=== PATIENT | male | born 1955 | race Caucasian/White ===

== ENCOUNTER 2018-07-07 22:48 | Emergency (ER) | payer BC ==
[~2018-07-07] VITALS: Ht 172.7 cm; Wt 117.9 kg
[~2018-07-07 22:48] MED LIST: ASPIR 8181 M1 PO; ATORVASTATIN PO; AVALIDE 150-121 EACH; AVAPRO300 MG PO; HYDROCHLOROTHIA25 M2 PO; LIPITOR; LOVAZA1000 MG PO; MULTI VITAMIN1 EACH PO; NORCO 5-325 TA1 EACH PO; PERCOCET 7.5-31 EACH PO; VASCEPA1 GM PO; XANAX 0.25 MG0.25 MG PO
[2018-07-08] MEDS ORDERED: NEURONTIN 300300 M1 PO (00:11)
[2018-07-08 00:25] VITALS: BP 118/62
== END 2018-07-08 00:26 | disposition home or self-care (01) ==
LOC: ER 22:48
DX: M54.81 Occipital neuralgia (principal); Z88.0 Allergy status to penicillin

== ENCOUNTER → 2019-11-01 | Outpatient (CLI) | payer BC ==
[~2019-11-01] MED LIST changes: +NEURONTIN 300300 M1 PO
== END ==
LOC: LAB 11:13
PROVIDERS: ATTEND Anesthesiology
DX: Z01.812 Encounter for preprocedural laboratory examination (principal); Z11.59 Encounter for screening for other viral diseases